=== PATIENT | male | born 1980 | race Caucasian/White ===

== ENCOUNTER 2019-09-26 18:08 | Emergency (ER) | payer BC ==
[~2019-09-26] VITALS: Ht 188 cm; Wt 98.9 kg
--- NOTE | 2019-09-26 18:14 | ED.ADGEN ---
Adult General Chief Complaint Chief Complaint " .. This has been a bad week.. I had to put my other dog down.. it s my day... and on the way to [place]... my other dog was beside the road.. I went to bury him... and I was holding onto a chain.. and I guess... I hit a lever on my back hoe.. ..but my finger got caught in the chain.. rubina my glove came off... but I crushed this Lt finger... 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 Pt. was able to flex finger tip, weak extension. Obvious fx and dislocation. Did have pad sensation. There was a 4 cm laceration flap on dorsal side of finger. Finger irrigated with Normal saline. Iodine finger and wound edge. Digital block with 2 % Lidocaine. Re- irrigated finger in Range of motion with NS under pressure. Use 4 simple sutures - 4-0 Prolene sutures and antibiotic ointment. Gauze dressing. Aluminum foam splint and juno taped to third finger. Pt. denies any history immunosuppression. No history of chronic infections. No recent travel or specific ill contacts. Patient's tetanus is up-to-date. Arrangement to have pt. seen in ED at - for further treatment and evaluation. Possible surgical repair or pining. Pt. to see Dr. Black shin. will drive pt. Pt. received a Gram of Rocephin prior to transfer to . Copy x-rays sent with pt. Pt. Rt had dominate. Review of Systems Review of Systems Constitutional: Denies fever or chills [] Eyes: Denies change in visual acuity, redness, or eye pain [] HENT: Denies nasal congestion or sore throat [] Respiratory: Denies cough or shortness of breath [] Cardiovascular: No additional information not addressed in HPI [] GI: Denies abdominal pain, nausea, vomiting, bloody stools or diarrhea [] : Denies dysuria or hematuria [] Musculoskeletal: Denies back pain or joint pain [] Complaints of crush injury Lt index finger. Integument: Denies rash or skin lesions [] Neurologic: Denies headache, focal weakness or sensory changes [] Endocrine: Denies polyuria or polydipsia [] All other systems were reviewed and found to be within normal limits, except as documented in this note. Family History Family History Noncontributory Current Medications Current Medications Current Medications Medications (Trade) Dose Ordered Sig/Reinaldo Start Time Stop Time Status Last Admin Dose Admin Bupivacaine HCl (Sensorcaine Mpf 0.5%) 30 ml 1X ONCE 09/26/19 18:30 09/26/19 18:31 DC 09/26/19 18:12 30 ML Ceftriaxone Sodium 1 gm/ Sodium Chloride 50 ml @ 100 mls/hr 1X ONCE 09/26/19 18:45 09/26/19 19:14 DC 09/26/19 18:56 100 MLS/HR Ceftriaxone Sodium (Rocephin Im) 1 gm 1X ONCE 09/26/19 18:30 09/26/19 18:40 DC Ceftriaxone Sodium (Rocephin) 1 gm STK-MED ONCE 09/26/19 18:53 09/26/19 18:53 DC Lidocaine HCl 20 ml 1X ONCE 09/26/19 18:30 09/26/19 18:31 DC 09/26/19 18:38 20 ML Morphine Sulfate (Morphine 10mg Syringe) 10 mg 1X ONCE 09/26/19 20:00 09/26/19 20:01 DC 09/26/19 19:53 10 MG Sodium Chloride 50 ml @ As Directed STK-MED ONCE 09/26/19 18:53 09/26/19 18:53 DC Tetanus/ Diphtheria Toxoids Adsorbed (Tenivac Vial) 0.5 ml ONCE ONCE 09/26/19 18:15 09/26/19 18:23 DC 09/26/19 18:51 0.5 ML Allergies Allergies Allergies Coded Allergies Type Severity Reaction Last Updated Verified No Known Drug Allergies 09/26/19 No Physical Exam Physical Exam Constitutional: Well developed, well nourished, in acute distress, non-toxic appearance. [] HENT: Normocephalic, atraumatic, bilateral external ears normal, oropharynx moist, no oral exudates, nose normal. [] Eyes: PERRLA, EOMI, conjunctiva normal, no discharge. [] Neck: Normal range of motion, no tenderness, supple, no stridor. [] Cardiovascular:Heart rate regular rhythm, no murmur [] Lungs & Thorax: Bilateral breath sounds equal at apexes on auscultation [] Abdomen: Bowel sounds normal, soft, no tenderness, no masses, no pulsatile masses. [] Skin: Warm, dry, no erythema, no rash. [] Back: No tenderness, no CVA tenderness. [] Extremities: No tenderness, no cyanosis, no clubbing, ROM intact, no edema. [( Except findings in Lt index finger)] Neurologic: Alert and oriented X 3, normal motor function, normal sensory function, no focal deficits noted. [] Psychologic: Affect normal, judgement normal, mood normal. [] Current Patient Data Vital Signs Vital Signs Date Time Temp Pulse Resp B/P (MAP) Pulse Ox O2 Delivery O2 Flow Rate FiO2 09/26/19 19:53 20 09/26/19 19:45 78 134/74 (94) 100 Room Air 09/26/19 18:10 98.0 EKG EKG [] Radiology/Procedures Radiology/Procedures [][place] [address] IMAGING REPORT Signed PATIENT: SADAF COSBY ACCOUNT: [id number] : 1980 LOCATION: ER AGE: 39 SEX: M EXAM STATUS: DEP ER ORD. PHYSICIAN: RUSH RUSS MD REASON: Post splint PROCEDURE: HAND LEFT 3V Study: HAND LEFT 3V Indication: Status post splinting. Comparison: 09/26/2019 at 1821 hours. Findings: Interval splinting of the fracture/dislocation of the index finger DIP joint. Persistent displacement of fracture fragments originating from the dorsal base of the distal phalanx. Alignment has improved with less pronounced volar malalignment of the distal phalanx. Redemonstrated punctate radiodensity within the volar/ulnar thumb soft tissues. Impression: Improved alignment of the previously seen index finger DIP joint fracture/dislocation, as above. Electronically signed by: HERIBERTO LOPEZ MD (09/26/2019 8:55 PM) [facility] DICTATED AND SIGNED BY: HERIBERTO LOPEZ MD DATE: 09/26/192054 Course & Med Decision Making Course & Med Decision Making Pertinent Labs and Imaging studies reviewed. (See chart for details) Call placed to [facility] - Transfer. While awaiting call back. Wound cleaned and splinted as per HPI. Plan transfer to - Dr. Matthews. is driving. [] Final Impression Final Impression 1. Crush Injury Lt. index[] Dragon Disclaimer Dragon Disclaimer This electronic medical record was generated, in whole or in part, using a voice recognition dictation system. Dragon Disclaimer This chart was dictated in whole or in part using Voice Recognition software in a busy, high-work load, and often noisy Emergency Department environment. It may contain unintended and wholly unrecognized errors or omissions. Dragon Disclaimer This chart was dictated in whole or in part using Voice Recognition software in a busy, high-work load, and often noisy Emergency Department environment. It may contain unintended and wholly unrecognized errors or omissions. RUSH RUSS MD Sep 26, 2019 18:14
[2019-09-26] MEDS ORDERED: TETANUS AND DIPHTHERIA TOX/PF 0.5 ML VIAL. VAX IM ONE (18:15)
[2019-09-26] MEDS ORDERED: MORPHINE SULFATE 10 MG/ML SYRINGE. SQ ONE ×2 (18:15→20:00)
[2019-09-26] MEDS ORDERED: cefTRIAXone IM 1 GM VIAL IM ONE (18:30)
[2019-09-26] MEDS ORDERED: BUPIVACAINE MPF 0.5% 30 ML VIAL. SQ ONE (18:30)
[2019-09-26] MEDS ORDERED: LIDOCAINE 2% 20 ML VIAL. IJ ONE (18:30)
[2019-09-26] MEDS ORDERED: cefTRIAXone SODIUM 1 GM VIAL ONE (18:53)
[2019-09-26] MEDS ORDERED: IV NORMAL SALINE 50ML 50 ML ONE (18:53)
[2019-09-26] MEDS ORDERED: CEPH-264 PO (19:37)
[2019-09-26] MEDS ORDERED: HYDR-1179 PO (19:37)
[2019-09-26 19:45] VITALS: BP 134/74
--- NOTE | 2019-09-26 20:55 | RAD ---
Study: HAND LEFT 3V Indication: Pain. Comparison: None. Findings: Bandaging material overlies the index finger. Fracture-dislocation of the index finger centered at the DIP joint with the distal phalanx dislocated volarly. Fracture fragments seen along the dorsal aspect of the malalignment joint likely originating from the base of the distal phalanx. The surrounding soft tissues are edematous and irregular. Punctate radiodensity within the volar/ulnar soft tissues of the distal thumb. Impression: 1. Fracture-dislocation of the index finger at the DIP joint with the distal phalanx displaced volarly relative to the middle phalanx and small fracture fragments likely originating from the base of the distal phalanx along the dorsal aspect of the joint. Irregularity of the overlying soft tissues and it is uncertain if this represents an open fracture. 2. Punctate radiodensity within the volar/ulnar soft tissues adjacent to the thumb distal phalanx of uncertain acuity. Electronically signed by: HERIBERTO LOPEZ MD (09/26/2019 8:52 PM) [facility]
--- NOTE | 2019-09-26 20:58 | RAD ---
Study: HAND LEFT 3V Indication: Status post splinting. Comparison: 09/26/2019 at 1821 hours. Findings: Interval splinting of the fracture/dislocation of the index finger DIP joint. Persistent displacement of fracture fragments originating from the dorsal base of the distal phalanx. Alignment has improved with less pronounced volar malalignment of the distal phalanx. Redemonstrated punctate radiodensity within the volar/ulnar thumb soft tissues. Impression: Improved alignment of the previously seen index finger DIP joint fracture/dislocation, as above. Electronically signed by: HERIBERTO LOPEZ MD (09/26/2019 8:55 PM) [facility]
== END 2019-09-26 19:55 | disposition short-term general hospital (02) ==
LOC: ER 18:08
DX: S62.631A Displaced fracture of distal phalanx of left index finger, initial encounter for closed fracture (principal); W23.0XXA Caught, crushed, jammed, or pinched between moving objects, initial encounter; Y93.89 Activity, other specified; Y92.89 Other specified places as the place of occurrence of the external cause; Y99.8 Other external cause status
CPT/HCPCS: 12002; 29130; 73130; 90471; 90714; 96365; 96372; 99285; J0696; J2270; J3490; J2001

== ENCOUNTER 2021-02-24 22:47 | Emergency (ER) | payer BC ==
[~2021-02-24] VITALS: Ht 190.5 cm; Wt 93.2 kg
[2021-02-24 22:47] VITALS: BP 123/75
[~2021-02-24 22:47] MED LIST: CEPH-264 PO; HYDR-1179 PO
--- NOTE | 2021-02-24 23:17 | PHYS DOC ---
Past History Past Medical History: No Pertinent History Past Surgical History: Other Additional Past Surgical Histo: SINUS Alcohol Use: Occasionally Drug Use: None General Adult EDM: Chief Complaint: HEADACHE HPI: HPI: Jaspreet is a 4-year-old male with a history of cluster headaches, who presents to the emergency room with 10 days of on and off cluster headaches, that have become constant over the past 2 days. He is prescribed sumatriptan for his cluster headaches, but has maxed out on his dose with no relief. He describes the pain as 10 out of 10, directly behind his left eye, stabbing in characteristic. The pain is worse with light, and his medications of head minimal palliative effect. His neurologist is Dr. Rao Hercules. He has been to the emergency room for similar situations in the past, and states that they usually give him a concoction of medicines in addition to oxygen, and this usually helps. The patient denies fevers, is AxO x4, and has no nuchal rigidity. Review of Systems: Review of Systems: Constitutional: Denies fever or chills Eyes: Denies redness or eye pain HENT: Denies nasal congestion or sore throat Respiratory: Denies cough or shortness of breath Cardiovascular: Denies chest pain or palpitations GI: Denies abdominal pain, nausea, or vomiting : Denies dysuria or hematuria Musculoskeletal: Denies back pain or joint pain Integument: Denies rash or skin lesions Neurologic: Reports severe cluster headache, denies focal deficits Complete systems were reviewed and found to be within normal limits, except as documented in this note. Current Medications: Current Meds: Current Medications Medications (Trade) Dose Ordered Sig/Reinaldo Start Time Stop Time Status Last Admin Dose Admin Acetaminophen/ Butalbital/ Caffeine (Fioricet) 1 tab 1X ONCE 02/24/21 23:30 02/24/21 23:31 Dexamethasone (Decadron) 10 mg 1X ONCE 02/24/21 23:30 02/24/21 23:31 Ketorolac Tromethamine (Toradol 30mg Vial) 30 mg 1X ONCE 02/24/21 23:30 02/24/21 23:31 Ondansetron HCl (Zofran Odt) 4 mg 1X ONCE 02/24/21 23:30 02/24/21 23:31 Allergies: Allergies: Allergies Coded Allergies Type Severity Reaction Last Updated Verified No Known Drug Allergies 09/26/19 No Physical Exam: PE: Constitutional: Well developed, well nourished, acutely distressed HENT: Normocephalic, atraumatic Eyes: PERRL, EOMI, conjunctiva erythematous bilaterally, no discharge Neck: Normal range of motion, no tenderness, supple Lungs & Thorax: No respiratory distress, equal chest rise and fall Abdomen: Soft, no tenderness Skin: Warm, dry, no erythema, no rash Back: No tenderness, no CVA tenderness Extremities: No tenderness, ROM intact, no edema Neurologic: Alert and oriented X 4, normal motor function, normal sensory function, no focal deficits noted Psychologic: Affect normal, judgment normal EKG: EKG: [] Radiology/Procedures: Radiology/Procedures: [] Heart Score: C/O Chest Pain: N/A Course & Med Decision Making: Course & Med Decision Making Jaspreet is a 4-year-old male who presents with 10 days of off-and-on cluster-like headaches. Over the past 2 days, his headache has become constant. He has a history of diagnosed cluster headaches, for who he sees the neurologist Dr. Rao Hercules. The patient states that the headaches he is currently experiencing are similar to those he has had in the past. He is alert and oriented x4, and does not have any systemic symptoms. It is most likely that he is experiencing a cluster headache, given his physical exam, and description of the headache as a severe stabbing pain behind his left eye. During his visit, he was given Benadryl, Reglan, Toradol, Fioricet, and steroids. In addition, he will receive oxygen and fluids. Patient stable for discharge with outpatient follow-up with PCP, and his neurologist. Discussed findings and plan with patient, who acknowledges understanding and agreement. Pertinent Labs and Imaging studies reviewed. (See chart for details) Dragon Disclaimer: Mark Disclaimer: This electronic medical record was generated, in whole or in part, using a voice recognition dictation system. Departure Departure: Impression: Primary Impression: Headache Qualified Codes: R51.9 - Headache, unspecified Disposition: 01 DC HOME SELF CARE/HOMELESS Condition: STABLE Referrals: GI AMADO (PCP) Patient Instructions: Cluster Headache, [id number], Headache, FAQs Scripts Butalb/Acetaminophen/Caffeine ([id number] 50-325-40) 1 Each Tablet 1 EACH PO Q6HRS PRN for HEADACHE, #14 TAB Prov: NAKUL FLOWERS DO 02/25/21 NAKUL FLOWERS DO Feb 24, 2021 23:17
[2021-02-24] MEDS ORDERED: METOCLOPRAMIDE HCL 10 MG/2 ML VIAL. IVP ONE (23:30)
[2021-02-24] MEDS ORDERED: diphenhydrAMINE 50 MG/ML VIAL IVP ONE (23:30)
[2021-02-24] MEDS ORDERED: BUTALB/APAP/CAFEIN 50/325/40MG TABLET. PO ONE (23:30)
[2021-02-24] MEDS ORDERED: ONDANSETRON ODT 4 MG TAB.RAPDIS PO ONE (23:30)
[2021-02-24] MEDS ORDERED: KETOROLAC 30 MG/ML VIAL. IM ONE (23:30)
[2021-02-24] MEDS ORDERED: DEXAMETHASONE SOD PHOS 10 MG/ML VIAL. IVP ONE (23:30)
[2021-02-24] MEDS ORDERED: IV NORMAL SALINE 1,000ML 1,000 ML IV ONE (23:30)
[2021-02-24] MEDS ORDERED: KETOROLAC 15 MG/ML VIAL. IVP ONE (23:30)
[2021-02-24] MEDS ORDERED: DEXAMETHASONE 4 MG TABLET PO ONE (23:30)
[2021-02-25] MEDS ORDERED: BUTA1TAB23 PO ×2 (00:04→00:40)
[2021-02-25] MEDS ORDERED: LIDOCAINE 2% 20 ML VIAL. ONE (00:04)
[2021-02-25] MEDS ORDERED: LIDOCAINE 2% 20 ML VIAL. IJ ONE (00:30)
== END 2021-02-25 01:10 | disposition home or self-care (01) ==
LOC: ER 22:47
DX: G44.009 Cluster headache syndrome, unspecified, not intractable (principal)
CPT/HCPCS: 96361; 96374; 96375; 99284; J1100; J1200; J1885; J2001; J2765; J7030

== ENCOUNTER 2021-05-13 20:36 | Emergency (ER) | payer BC ==
[~2021-05-13] VITALS: Ht 190.5 cm; Wt 94.7 kg
[~2021-05-13 20:36] MED LIST changes: +BUTA1TAB23 PO
--- NOTE | 2021-05-13 21:46 | PHYS DOC ---
Past History Past Medical History: Other Additional Past Medical Histor: cluster headaches (ILDEFONSO ARANA APRN) Past Surgical History: Other Additional Past Surgical Histo: SINUS (ILDEFONSO ARANA APRN) Smoking: Non-smoker Alcohol Use: Occasionally Drug Use: None (ILDEFONSO ARANA APRN) General Adult HPI: HPI: Patient is a 40-year-old male presents with abdominal pain that radiates to bilateral flank. Patient states the pain started at 3 AM. Patient reports nausea and vomiting. Denies diarrhea, fever, recent illness, chest pain. Patient states "the only thing that made me feel better was sitting in the shower and letting the water run over me". Patient reports taking Benadryl, and Gas-X to help with the pain with little relief. Last bowel movement was this morning. Patient has a history of cluster migraines. Denies tobacco or drug use. (ILDEFONSO ARANA APRN) Review of Systems: Review of Systems: Constitutional: Denies fever or chills Eyes: Denies change in visual acuity HENT: Denies nasal congestion or sore throat Respiratory: Denies cough or shortness of breath Cardiovascular: Denies chest pain or edema GI: Reports abdominal pain that radiates to bilateral flank. Reports nausea and vomiting. Denies diarrhea. : Denies dysuria Musculoskeletal: Denies back pain or joint pain Integument: Denies rash Neurologic: Denies headache, focal weakness or sensory changes Endocrine: Denies polyuria or polydipsia Lymphatic: Denies swollen glands Psychiatric: Denies depression or anxiety (ILDEFONSO ARANA APRN) Allergies: Allergies: Allergies Coded Allergies Type Severity Reaction Last Updated Verified No Known Drug Allergies 09/26/19 No (ILDEFONSO ARANA APRN) Physical Exam: PE: Constitutional: Well developed, well nourished, no acute distress, non-toxic appearance. [] HENT: Normocephalic, atraumatic, bilateral external ears normal, oropharynx moist, no oral exudates, nose normal. [] Eyes: PERRLA, EOMI, conjunctiva normal, no discharge. [] Neck: Normal range of motion, no tenderness, supple, no stridor. [] Cardiovascular:Heart rate regular rhythm, no murmur [] Lungs & Thorax: Bilateral breath sounds clear to auscultation [] Abdomen: Bowel sounds normal, soft, mid abdominal tenderness Skin: Warm, dry, no erythema, no rash. [] Back: Bilateral flank pain Extremities: No tenderness, no cyanosis, no clubbing, ROM intact, no edema. [] Neurologic: Alert and oriented X 3, normal motor function, normal sensory function, no focal deficits noted. [] Psychologic: Affect normal, judgement normal, mood normal. [] (ILDEFONSO ARANA APRN) EKG: EKG: [] (ILDEFONSO ARANA APRN) Radiology/Procedures: Radiology/Procedures: [] (ILDEFONSO ARANA APRN) Heart Score: C/O Chest Pain: No Risk Factors: Risk Factors: DM, Current or recent (<one month) smoker, HTN, HLP, family history of CAD, obesity. Risk Scores: Score 0 - 3: 2.5% MACE over next 6 weeks - Discharge Home Score 4 - 6: 20.3% MACE over next 6 weeks - Admit for Clinical Observation Score 7 - 10: 72.7% MACE over next 6 weeks - Early Invasive Strategies (ILDEFONSO ARANA APRN) Course & Med Decision Making: Course & Med Decision Making Pertinent Labs and Imaging studies reviewed. (See chart for details) [] Transfer of patient care to Dr. Mckeon at 2147 (ILDEFONSO ARANA APRN) Course & Med Decision Making Patient care was taken over from Anastasiia BONILLA. Patient was examined, evaluated and investigated. Patient reported to me that he woke up with severe constant sharp aching pain left upper quadrant/left flank area around 3 AM this morning. It truly never went away. Patient tolerated as long as he could. Patient came to the ER for evaluation. Patient previously healthy. No major medical illness. Has history of exposure to heat and sun. Sign of dehydration. Blood work reviewed. Essentially unremarkable except mild leukocytosis white blood cell count 14,000 likely inflammatory process. UA consistent with hematuria without any UTI. His CT abdomen pelvis revealed phlebolith in the left pelvis. He also has additional small few pieces of hyperechoic structures likely kidney stone which presently has migrated to the bladder. Patient in the ER received analgesics, anti-inflammatory as well as IV fluids. His pain was controlled with IV analgesics and IV anti-inflammatory. He required further analgesics prior to departure from the ER. He was discharged on hydrocodone/ibuprofen, Zofran, naproxen, and Flomax. He was advised to see primary care provider and possibly follow-up with urology if symptoms does not improve or continues to worsen. He understands and agrees the plan. (CLARITA PRUETT MD) Course & Med Decision Making Did not see or evaluate patient. Agree with GERIATRIC NURSE PRACTITIONER's work-up and disposition per note. (SHANE GARCIA MD) Dragon Disclaimer: Dragon Disclaimer: This electronic medical record was generated, in whole or in part, using a voice recognition dictation system. (ILDEFONSO ARANA APRN) Departure Departure: Impression: Primary Impression: Phlebolith Additional Impressions: Left lateral abdominal pain Hematuria Leukocytosis Disposition: HOME / SELF CARE / HOMELESS Condition: IMPROVED Referrals: GI AMADO (PCP) Additional Instructions: Please see your primary care provider in 2 to 3 days. You may have to see a urologist if your symptoms does not improve as we have discussed. You likely agosto ve small pieces of stone in the bladder. You do have calcified stone in your pelvis. Your white blood cell count elevated likely secondary to inflammatory process. You have blood in the urine consistent with kidney stone. Take medication as prescribed. Please drink plenty of fluid. Scripts Ondansetron Hcl (ZOFRAN) 4 Mg Tablet 1 TAB PO Q6HRS for nausea for 5 Days, #20 TAB Prov: CLARITA PRUETT MD 05/14/21 Hydrocodone/Ibuprofen (HYDROCODONE-IBUPROFEN 7.5-200 ) 1 Each Tablet 1 TAB PO PRN Q6HRS PRN for PAIN for 5 Days, #20 TAB 0 Refills Prov: CLARITA PRUETT MD 05/14/21 Tamsulosin Hcl (FLOMAX) 0.4 Mg Cap.er.24h 0.4 MG PO DAILY for urine flow for 10 Days, #10 CAP.SR Prov: CLARITA PRUETT MD 05/14/21 Naproxen (NAPROXEN) 500 Mg Tablet 1 TAB PO BID for pain for 20 Days, #40 TAB 0 Refills Prov: CLARITA PRUETT MD 05/14/21 ILDEFONSO ARANA APRN May 13, 2021 21:46 CLARITA PRUETT MD May 14, 2021 00:23 SHANE GARCIA MD May 14, 2021 01:04
[2021-05-13 21:55] LABS: BASO # 0.1 x10^3/uL (0.0-0.2); BASO % 1 % (0-3); EOS % 0 % (0-3); HEMOGLOBIN 16.2 g/dL (13.0-17.5); LYMPH # 1.1 x10^3/uL (1.0-4.8); LYMPH % 7 % (24-48); MEAN CORPUSCULAR HEMOGLOBIN 31 pg (25-35); MEAN CORPUSCULAR HGB CONC 34 g/dL (31-37); MEAN CORPUSCULAR VOLUME 92 fL (79-100); MONO % 6 % (0-9); NEUT # 12.9 x10^3uL (1.8-7.7); NEUT % 86 % (31-73); PLATELET COUNT 308 x10^3/uL (140-400); RED CELL DISTRIBUTION WIDTH 13.5 % (11.5-14.5); WHITE BLOOD COUNT 15.1 x10^3/uL (4.0-11.0)
[2021-05-13] MEDS ORDERED: ONDANSETRON PF 4 MG/2 ML VIAL. IVP ONE (22:00)
[2021-05-13] MEDS ORDERED: MORPHINE SULFATE 4 MG/ML DISP.SYRIN. IV ONE (22:00)
--- NOTE | 2021-05-13 22:05 | RAD ---
CT scan abdomen and pelvis without contrast 05/13/2021 CLINICAL HISTORY: Abdominal pain. Bilateral flank pain. TECHNIQUE: Unenhanced, contiguous, 3 mm axial sections were obtained through the abdomen and pelvis. One or more of the following individualized dose reduction techniques were utilized for this study: 1. Automated exposure control. 2. Adjustment of the mA and/or kV according to patient size. 3. Use of iterative reconstruction technique. FINDINGS: Images through the lung bases demonstrate minimal dependent subsegmental atelectasis bilate rally. The liver, spleen, pancreas, adrenal glands and kidneys are within normal limits. The abdominal aorta tapers normally. The gallbladder is well-distended. No free fluid or free air is seen within the abdomen. There is no evidence of bowel obstruction. The appendix is well-visualized a nd is within normal limits. Images through the pelvis demonstrate the urinary bladder distended with urine. Calcifications are se en within the pelvis consistent phleboliths. No free fluid is seen. Minimal S-shaped curvature of the thoracolumbar spine is seen. IMPRESSION: No acute abnormality is seen. Electronically signed by: Antonino Bustamante MD (05/13/2021 10:03 PM) [id number]
--- NOTE | 2021-05-13 22:07 | RAD ---
AP portable chest radiograph 05/13/2021 Clinical History: Chest pain. An AP erect portable digital radiograph of the chest was obtained. An anterior plate and bone screws overlies the lower cervical spine. The cardiac and mediastinal silh ouettes are within normal limits in size and configuration. No pulmonary infiltrate is seen. No pleur al effusion or pneumothorax is noted. The osseous structures are grossly intact. IMPRESSION: No acute abnormality is seen. Electronically signed by: Antonino Bustamante MD (05/13/2021 10:05 PM) [id number]
[2021-05-13 22:32] LABS: BILIRUBIN,URINE SMALL (NEG); CLARITY,URINE CLOUDY; COLOR,URINE YELLOW; GLUCOSE,URINE NEG (NEG)
[2021-05-13 22:34] LABS: BACTERIA,URINE 0 /HPF (0-FEW); NITRITE,URINE NEG (NEG); UROBILINOGEN,URINE 0.2 mg/dL (0.2 mg/dL); WBC,URINE 0 /HPF (0-4)
[2021-05-13 22:35] LABS: AMORPHOUS SEDIMENT,UR PRESENT /HPF
[2021-05-13 22:36] LABS: SQUAMOUS EPITHELIAL CELL,UR OCC /LPF
[2021-05-13 22:42] LABS: CALCIUM 9.2 mg/dL (8.5-10.1); CREATININE 0.9 mg/dL (0.7-1.3); GFR 93.5
[2021-05-13 22:45] LABS: % LYMPHS 11 % (24-48); % MONOS 5 % (0-10); % SEGS 84 % (35-66); PLT ESTIMATE ADEQUATE (ADEQUATE)
[2021-05-13 22:49] LABS: ALBUMIN 4.4 g/dL (3.4-5.0); ALBUMIN/GLOBULIN RATIO 1.1 (1.0-1.7); TOTAL BILIRUBIN 1.1 mg/dL (0.2-1.0); TOTAL PROTEIN 8.5 g/dL (6.4-8.2)
[2021-05-13] MEDS ORDERED: KETOROLAC 30 MG/ML VIAL. ONE (22:56)
[2021-05-13] MEDS ORDERED: IV NORMAL SALINE 1,000ML 1,000 ML IV ONE (23:00)
[2021-05-13] MEDS ORDERED: KETOROLAC 30 MG/ML VIAL. IVP ONE (23:30)
[2021-05-14] MEDS ORDERED: NAPR-514 PO (00:19)
[2021-05-14] MEDS ORDERED: HYDR-1179 PO (00:22)
[2021-05-14] MEDS ORDERED: TAMS0.4C97 PO (00:22)
[2021-05-14] MEDS ORDERED: ONDA4TAB7 PO (00:23)
[2021-05-14 00:34] VITALS: BP 146/84
[2021-05-14] MEDS ORDERED: HYDROmorphone PF 1 MG/ML DISP.SYRIN IVP ONE (01:00)
--- NOTE | 2021-05-14 06:23 | EKG ---
[address] [address] Test Date: 2021-05-13 Test Time: 22:10:33 Pat Name: SADAF COSBY Department: Room: Gender: M Senior Planning Manager: : 1980 Requested By: ILDEFONSO ARANA Order Number: [id number] Reading MD: Measurements Intervals [place] Rate: 53 P: 58 PA: 140 QRS: 76 QRSD: 96 T: 47 QT: 402 QTc: 379 Interpretive Statements SINUS RHYTHM NORMAL ECG RI6.02 No previous ECG available for comparison
== END 2021-05-14 00:38 | disposition home or self-care (01) ==
LOC: ER 20:36
DX: I87.8 Other specified disorders of veins (principal); D72.829 Elevated white blood cell count, unspecified; R31.9 Hematuria, unspecified
CPT/HCPCS: 36415; 71045; 74176; 80053; 81001; 83690; 85007; 85025; 93005; 96374; 96375; 99285; J1170; J1885; J2270; J2405; J7030

== ENCOUNTER 2021-09-04 21:09 | Emergency (ER) | payer BC ==
[~2021-09-04] VITALS: Ht 190.5 cm; Wt 95.8 kg
[~2021-09-04 21:09] MED LIST changes: +NAPR-514 PO; +ONDA4TAB7 PO; +TAMS0.4C97 PO
[2021-09-04] MEDS ORDERED: CEPH500C PO (21:29)
--- NOTE | 2021-09-04 21:30 | PHYS DOC ---
Past History Past Medical History: Other Additional Past Medical Histor: cluster headaches Past Surgical History: Other Additional Past Surgical Histo: SINUS Smoking: Non-smoker Alcohol Use: Occasionally Drug Use: None Adult General Chief Complaint Chief Complaint: LACERATION/AVULSION HPI HPI Patient is a 40-year-old male who presents with a laceration to the left hand that occurred just before coming to the ED when trying to take at home On final car. States he is up-to-date on his tetanus vaccinations having 1 about a year ago. Denies any other injuries. States he did not really hurt that bad. States he did clean it a little bit at home before coming. Review of Systems Review of Systems Review of systems otherwise unremarkable except noted in HPI Allergies Allergies Allergies Coded Allergies Type Severity Reaction Last Updated Verified No Known Drug Allergies 09/26/19 No Physical Exam Physical Exam Constitutional: Well developed, well nourished, no acute distress, non-toxic appearance. [] Skin: Warm, dry, no erythema, no rash. [] Extremities: Tenderness at the base of the first digit of the left hand with an approximately 5 cm linear laceration, bleeding controlled, neurovascular exam intact, range of motion intact Neurologic: Alert and oriented X 3, normal motor function, normal sensory function, no focal deficits noted. [] Psychologic: Affect normal, judgement normal, mood normal. [] EKG EKG [] Radiology/Procedures Radiology/Procedures Approximately 5 cm wound at the base of the left first digit. Wound cleaned extensively with sterile water. L ET placed for topical anesthesia. Anesthesia achieved. Cleaned wound before repair. 5, 4-0 sutures placed. Patient tolerated well. Cleaned and bandaged. Gave patient wound care material for home. [] Heart Score C/O Chest Pain: No Risk Factors: Risk Factors: DM, Current or recent (<one month) smoker, HTN, HLP, family history of CAD, obesity. Risk Scores: Risk Factors: DM, Current or recent (<one month) smoker, HTN, HLP, family history of CAD, obesity. Course & Med Decision Making Course & Med Decision Making Patient is a 40-year-old male who presents with laceration to the palm of the hand just under left side Vital signs not concerning. Physical exam noted above. Patient up-to-date on tetanus. Started on Keflex in the ED. Wash the wound extensively. Placed L ET for topical anesthesia. Washed the wound again. Repaired with suture. Bandaged. Gave patient wound care instructions. Gave prescription of antibiotics. Advised to follow-up with primary care in 5 to 7 days for wound check and suture removal. Gave return precautions to the ED. Patient grateful, verbalized understanding and agreed with plan of discharge. [] Dragon Disclaimer Dragon Disclaimer This electronic medical record was generated, in whole or in part, using a voice recognition dictation system. Departure Departure: Impression: Primary Impression: Hand laceration Disposition: HOME / SELF CARE / HOMELESS Condition: GOOD Referrals: [facility]ADO (PCP) Patient Instructions: Laceration Care, Adult, Sutured Wound Care Additional Instructions: Thank you for coming into the emergency department tonight allowing us to take c are of you. Please read the attached information carefully go back over things we discussed. Please take all your antibiotics as prescribed and until gone. As we discussed please keep the wound clean, dry and bandaged. Please do not submerge the wound in water for the next 24 hours. Please follow-up with your primary care physician on Monday to set up a follow-up in 5 to 7 days for a wound check and suture removal. If you cannot get into your primary care physician for this she can come back to the emergency department. Please come back to the ED with new or concerning symptoms as we discussed. Scripts Cephalexin (KEFLEX) 500 Mg Capsule 1 CAP PO TID for wound for 7 Days, #21 CAP Prov: SHANE GARCIA MD 09/04/21 SHANE GARCIA MD Sep 04, 2021 21:30
[2021-09-04] MEDS ORDERED: CEPHALEXIN 250 MG CAPSULE PO ONE (22:00)
[2021-09-04] MEDS ORDERED: LIDOCAINE/EPI/TETRACAINE TOPICAL GEL 3 ML. TP ONE (22:00)
[2021-09-04 22:15] VITALS: BP 134/76
== END 2021-09-04 22:19 | disposition home or self-care (01) ==
LOC: ER 21:09
DX: S61.412A Laceration without foreign body of left hand, initial encounter (principal); X58.XXXA Exposure to other specified factors, initial encounter; Y93.89 Activity, other specified; Y92.89 Other specified places as the place of occurrence of the external cause; Y99.8 Other external cause status
CPT/HCPCS: 12002; 99283